=== PATIENT | male | born 1990 | race Asian ===

== ENCOUNTER 2025-05-22 13:25 | Inpatient (IN) | payer OTHER ==
[~2025-05-22] VITALS: Ht 177.8 cm; Wt 80.0 kg
[2025-05-22] MEDS ORDERED: OLAN5TAB52 PO (14:24)
[2025-05-22] MEDS ORDERED: FLUO-418 PO (14:24)
[2025-05-22] MEDS ORDERED: HYDR-4808 PO (14:24)
[2025-05-22 15:55] LABS: PLATELET COUNT (AUTO) 150 K/uL (150-450); RED BLOOD CELL COUNT(AUTO) 5.71 MIL/uL (4.50-5.90); RED CELL DISTRIBUTION WIDTH 13.6 % (11.5-14.5); WHITE BLOOD COUNT (AUTO) 6.9 K/uL (4.5-11.0)
[2025-05-22 15:59] LABS: CALCIUM, TOTAL 9.1 mg/dL (8.8-10.5); CREATININE 1.28 mg/dL (0.60-1.30); GLOMERULAR FILTR. RATE CALC > 60 mL/min (>60); GLUCOSE,RANDOM 78 mg/dL (70-110); SODIUM SERUM 144 mmol/L (136-145); UREA NITROGEN, BLOOD 20 mg/dL (7-18)
[2025-05-22 16:03] LABS: COVID AG,FIA SOURCE NPH
[2025-05-22 16:22] LABS: SARS-COV2 (COVID) ANTIGEN,FIA Negative (Negative)
[2025-05-22] MEDS ORDERED: ONDANSETRON HCL 4 MG/2 ML VIAL IVP PRN (17:45)
[2025-05-22] MEDS ORDERED: ACETAMINOPHEN 325 MG TABLET PO PRN (17:45)
[2025-05-22] MEDS: RINGERS SOLUTION,LACTATED 1,000 ML IV ONE (18:30)
[2025-05-22 20:00] VITALS: BP 127/79; PULSE 64; RESP 18; TEMP 97.9; O2SAT 97
[2025-05-22] MEDS: DOCUSATE SODIUM 100 MG CAPSULE PO SCH (20:24)
[2025-05-22 20:25] LABS: APPEARANCE,URINE CLEAR (CLEAR); GLUCOSE, URINE (UA) NEGATIVE (NEGATIVE); LEUKOCYTE ESTERASE ,URINE NEGATIVE (NEGATIVE); NITRATE,URINE NEGATIVE (NEGATIVE); OCCULT BLOOD,URINE NEGATIVE (NEGATIVE); PH,URINE DRUG SCREEN 5.5 (5.0-8.0); SPECIFIC GRAVITIY, URINE 1.033 (1.003-1.030)
[2025-05-22 21:58] LABS: ALCOHOL, URINE DRUG SCREEN NEGATIVE (NEGATIVE); AMPHET/METH SCREEN,URINE NEGATIVE (NEGATIVE); BARBITURATE SCREEN, URINE NEGATIVE (NEGATIVE); CANNABINOID SCREEN,URINE NEGATIVE (NEGATIVE); COCAINE SCREEN,URINE NEGATIVE (NEGATIVE); METHADONE SCREEN, URINE NEGATIVE (NEGATIVE)
[2025-05-23] MEDS: HEPARIN SODIUM,PORCINE 5,000 UNITS/ML VIAL SQ SCH
[2025-05-23 04:00] VITALS: BP 118/76; PULSE 60; RESP 18; TEMP 98; O2SAT 96
[2025-05-23 07:24] VITALS: BP 109/68; PULSE 67; RESP 18; TEMP 97.5; O2SAT 98
[2025-05-23 07:57] LABS: PLATELET COUNT (AUTO) 154 K/uL (150-450); RED BLOOD CELL COUNT(AUTO) 5.41 MIL/uL (4.50-5.90); RED CELL DISTRIBUTION WIDTH 13.5 % (11.5-14.5); WHITE BLOOD COUNT (AUTO) 5.0 K/uL (4.5-11.0)
[2025-05-23 08:11] LABS: CALCIUM, TOTAL 8.5 mg/dL (8.8-10.5); CREATININE 1.07 mg/dL (0.60-1.30); GLOMERULAR FILTR. RATE CALC > 60 mL/min (>60); GLUCOSE,RANDOM 73 mg/dL (70-110); SODIUM SERUM 142 mmol/L (136-145); UREA NITROGEN, BLOOD 23 mg/dL (7-18)
[2025-05-23] MEDS: ESCITALOPRAM OXALATE 10 MG TABLET PO SCH (17:11)
[2025-05-23 19:55] VITALS: BP 117/82; PULSE 57; RESP 18; TEMP 98.6; O2SAT 96
[2025-05-24 04:13] VITALS: BP 138/88; PULSE 76; RESP 18; TEMP 97.7; O2SAT 97
[2025-05-24 08:00] VITALS: BP 127/79; PULSE 57; RESP 20; TEMP 97.9; O2SAT 97
[2025-05-24] MEDS: 1: MAGNESIUM SULFATE 2 GM, MVI, ADULT NO.1 WITH VIT K 10 ML, THIAMINE 100 MG, FOLIC ACID IV SCH (14:37)
[2025-05-24 20:14] VITALS: BP 130/87; PULSE 60; RESP 18; TEMP 98.6; O2SAT 95
[2025-05-25 04:42] VITALS: BP 117/84; PULSE 61; RESP 18; TEMP 97.5; O2SAT 98
[2025-05-25 08:42] VITALS: BP 133/88; PULSE 60; RESP 18; TEMP 98.1; O2SAT 98
[2025-05-25 15:36] VITALS: BP 129/85; PULSE 76; RESP 18; TEMP 97.8; O2SAT 97
[2025-05-25 20:00] VITALS: BP 133/93; PULSE 62; RESP 18; TEMP 97.9; O2SAT 95
[2025-05-26 04:00] VITALS: BP 115/74; PULSE 52; RESP 18; TEMP 98.2; O2SAT 98
[2025-05-26 08:38] VITALS: BP 111/63; PULSE 66; RESP 18; TEMP 97.7; O2SAT 99
[2025-05-26 12:24] LABS: CALCIUM, TOTAL 8.4 mg/dL (8.8-10.5); CREATININE 0.94 mg/dL (0.60-1.30); GLOMERULAR FILTR. RATE CALC > 60 mL/min (>60); GLUCOSE,RANDOM 68 mg/dL (70-110); SODIUM SERUM 145 mmol/L (136-145); UREA NITROGEN, BLOOD 17 mg/dL (7-18)
[2025-05-26] MEDS ORDERED: DEXTROSE 50%-WATER 25 GM/50 ML SYRINGE IVP PRN (15:30)
[2025-05-26] MEDS: RINGERS SOLUTION,LACTATED 500 ML IV ONE (16:32)
[2025-05-26 18:05] LABS: GLUCOMETER DEV NAME(LOC) 6N.2C; GLUCOSE,POINT OF CARE 76 MG/DL (70-110)
[2025-05-26] MEDS: DEXTROSE 5%-LACTATED RINGERS 1,000 ML IV SCH (18:16)
[2025-05-26 20:07] VITALS: BP 116/76; PULSE 57; RESP 18; TEMP 98.1; O2SAT 96
[2025-05-27 04:58] VITALS: BP 102/76; PULSE 54; RESP 18; TEMP 97.7; O2SAT 94
[2025-05-27 07:28] LABS: CALCIUM, TOTAL 8.4 mg/dL (8.8-10.5); CREATININE 0.91 mg/dL (0.60-1.30); GLOMERULAR FILTR. RATE CALC > 60 mL/min (>60); GLUCOSE,RANDOM 97 mg/dL (70-110); SODIUM SERUM 143 mmol/L (136-145); UREA NITROGEN, BLOOD 11 mg/dL (7-18)
[2025-05-27 08:00] VITALS: BP 118/79; PULSE 57; RESP 16; TEMP 98.1; O2SAT 97
[2025-05-27] MEDS: MAGNESIUM SULFATE 2 GM/WATER 50 ML IV ONE (12:33)
[2025-05-27 16:00] VITALS: BP 130/85; PULSE 61; RESP 16; TEMP 98.1; O2SAT 98
[2025-05-27 20:04] VITALS: BP 132/88; PULSE 52; RESP 17; TEMP 98.2; O2SAT 97
[2025-05-28 04:19] VITALS: BP 109/77; PULSE 69; RESP 17; TEMP 98.1; O2SAT 95
[2025-05-28 07:34] VITALS: BP 118/72; PULSE 53; RESP 18; TEMP 97.3; O2SAT 97
[2025-05-28] MEDS: MAGNESIUM OXIDE 400 MG TABLET PO ONE (14:20)
[2025-05-28] MEDS ORDERED: ESCI-8 PO (15:07)
[2025-05-28] MEDS ORDERED: QUET100T PO (15:09)
== END 2025-05-28 19:40 | DRG 914 ==
LOC: EDBD → EMS 13:27 → EDH 16:47 → 6N 18:48
PROVIDERS: ADMIT Internal Medicine; ATTEND Internal Medicine
PROC: GZ56ZZZ Individual Psychotherapy, Supportive (ICD-10-PCS; 2025-05-23)
PROC: GZ52ZZZ Individual Psychotherapy, Cognitive (ICD-10-PCS; principal; 2025-05-26)
DX: S51.821A Laceration with foreign body of right forearm, initial encounter (principal); F32.3 Major depressive disorder, single episode, severe with psychotic features; I10 Essential (primary) hypertension; S51.822A Laceration with foreign body of left forearm, initial encounter; R79.89 Other specified abnormal findings of blood chemistry; Z20.822 Contact with and (suspected) exposure to COVID-19; Z53.20 Procedure and treatment not carried out because of patient's decision for unspecified reasons; E83.42 Hypomagnesemia; X78.8XXA Intentional self-harm by other sharp object, initial encounter; Y93.89 Activity, other specified; Y92.89 Other specified places as the place of occurrence of the external cause; Y99.8 Other external cause status; Z79.899 Other long term (current) drug therapy
CPT/HCPCS: 80048; 80307; 81003; 82962; 83735; 85025; 96360; 99285; G0480; J1644; J3411; J3475; J3490; J7030; J7120; 36415-L1; 36415-TC

== ENCOUNTER 2025-05-29 16:46 | Inpatient (IN) | payer OTHER ==
[~2025-05-29] VITALS: Ht 185.4 cm; Wt 81.0 kg
[~2025-05-29 16:46] MED LIST: ESCI-8 PO; QUET100T PO
[2025-05-29 17:26] LABS: PLATELET COUNT (AUTO) 146 K/uL (150-450); RED BLOOD CELL COUNT(AUTO) 5.74 MIL/uL (4.50-5.90); RED CELL DISTRIBUTION WIDTH 13.3 % (11.5-14.5); WHITE BLOOD COUNT (AUTO) 4.1 K/uL (4.5-11.0)
[2025-05-29 17:31] LABS: CALCIUM, TOTAL 9.1 mg/dL (8.8-10.5); CREATININE 1.12 mg/dL (0.60-1.30); GLOMERULAR FILTR. RATE CALC > 60 mL/min (>60); GLUCOSE,RANDOM 82 mg/dL (70-110); SODIUM SERUM 143 mmol/L (136-145); UREA NITROGEN, BLOOD 13 mg/dL (7-18)
[2025-05-29 21:23] VITALS: BP 134/93; PULSE 79; RESP 18; TEMP 97.9; O2SAT 97
[2025-05-29] MEDS ORDERED: MAGNESIUM HYDROXIDE SUSPENSION 30 ML UDCUP PO PRN (21:30)
[2025-05-29] MEDS ORDERED: ZOLPIDEM TARTRATE 5 MG TABLET PO PRN (21:30)
[2025-05-29] MEDS ORDERED: IPRATROPIUM BROMIDE 0.5 MG/2.5 ML NEB SOLUTION NEB PRN (21:30)
[2025-05-29] MEDS ORDERED: ONDANSETRON HCL 4 MG/2 ML VIAL IVP PRN (21:30)
[2025-05-29] MEDS: DEXTROSE 5%-0.45% SODIUM CHL 1,000 ML IV SCH (21:30)
[2025-05-29] MEDS ORDERED: ALBUTEROL SULFATE 2.5 MG/0.5 ML NEB SOLUTION NEB PRN (21:30)
[2025-05-29] MEDS ORDERED: ACETAMINOPHEN 325 MG TABLET PO PRN (21:30)
[2025-05-29] MEDS ORDERED: BISACODYL 10 MG RECTAL RECTAL SUPPOSITORY PR PRN (21:30)
[2025-05-29 22:02] LABS: ASPARTATE AMINOTRANSFERASE 41.0 U/L (15-37); TOTAL PROTEIN, SERUM 7.5 g/dL (6.4-8.2)
[2025-05-29] MEDS: HEPARIN SODIUM,PORCINE 5,000 UNITS/ML VIAL SQ SCH (23:28)
[2025-05-30 04:31] VITALS: BP 114/79; PULSE 58; RESP 17; TEMP 97.7; O2SAT 96
[2025-05-30 07:15] VITALS: BP 107/71; PULSE 67; RESP 18; TEMP 97.9; O2SAT 100
[2025-05-30] MEDS: PANTOPRAZOLE SODIUM 40 MG DR TABLET PO SCH (08:28)
[2025-05-30 20:00] VITALS: BP 122/87; PULSE 63; RESP 18; TEMP 98.2; O2SAT 99
[2025-05-31 04:00] VITALS: BP 109/60; PULSE 54; RESP 18; TEMP 98; O2SAT 99
[2025-05-31 08:36] VITALS: BP 125/89; PULSE 69; RESP 18; TEMP 97.8; O2SAT 98
[2025-05-31 16:09] VITALS: BP 124/82; PULSE 60; RESP 16; TEMP 97.9; O2SAT 100
[2025-05-31 20:13] VITALS: BP 118/84; PULSE 61; RESP 18; TEMP 98.2; O2SAT 94
[2025-06-01 04:21] VITALS: BP 95/66; PULSE 60; RESP 18; TEMP 97.7; O2SAT 97
[2025-06-01 07:17] VITALS: BP_SYST 108; BP_SYST 112; BP_DIAS 65; BP_DIAS 74; PULSE 55; PULSE 70; RESP 18; TEMP 98.1; O2SAT 100
[2025-06-01 15:38] VITALS: BP 120/82; PULSE 68; RESP 16; TEMP 98.1; O2SAT 99
[2025-06-01 19:50] VITALS: BP 116/82; PULSE 61; RESP 17; TEMP 98.1; O2SAT 97
[2025-06-02 04:20] VITALS: BP 107/78; PULSE 59; RESP 17; TEMP 98; O2SAT 98
[2025-06-02 20:09] VITALS: BP 111/75; PULSE 56; RESP 18; TEMP 97.7; O2SAT 95
[2025-06-03 04:48] VITALS: BP 105/76; PULSE 57; RESP 17; TEMP 97.5; O2SAT 96
[2025-06-03 08:14] VITALS: BP 100/72; PULSE 64; RESP 18; TEMP 97.5; O2SAT 97
[2025-06-03 16:20] LABS: ASPARTATE AMINOTRANSFERASE 14 U/L (15-37); CALCIUM, TOTAL 8.8 mg/dL (8.8-10.5); CREATININE 1.26 mg/dL (0.60-1.30); GLOMERULAR FILTR. RATE CALC > 60 mL/min (>60); GLUCOSE,RANDOM 166 mg/dL (70-110); PHOSPHORUS 3.4 mg/dL (2.5-4.9); SODIUM SERUM 138 mmol/L (136-145); TOTAL PROTEIN, SERUM 7.0 g/dL (6.4-8.2); UREA NITROGEN, BLOOD 29 mg/dL (7-18)
[2025-06-03 19:56] VITALS: BP 127/87; PULSE 76; RESP 18; TEMP 97.9; O2SAT 97
[2025-06-04 04:53] VITALS: BP 103/69; PULSE 62; RESP 18; TEMP 97.5; O2SAT 97
[2025-06-04] MEDS: ESCITALOPRAM OXALATE 10 MG TABLET PO SCH (08:18)
[2025-06-04 08:23] VITALS: BP 102/70; PULSE 60; RESP 17; TEMP 97.7; O2SAT 100
[2025-06-04] MEDS ORDERED: ESCITALOPRAM OXALATE 10 MG TABLET PO SCH (09:00)
[2025-06-04 20:00] VITALS: BP 119/91; PULSE 71; RESP 20; TEMP 97.9; O2SAT 98
[2025-06-05 05:30] VITALS: BP 109/54; PULSE 59; RESP 18; TEMP 97.9; O2SAT 96
[2025-06-05 07:46] VITALS: BP 91/61; PULSE 56; RESP 18; TEMP 97.7; O2SAT 97
[2025-06-05 19:33] VITALS: BP 110/66; PULSE 68; RESP 18; TEMP 98.4; O2SAT 95
[2025-06-06 05:17] VITALS: BP 92/61; PULSE 63; RESP 18; TEMP 97.5; O2SAT 98
[2025-06-06 08:04] VITALS: BP 100/62; PULSE 61; RESP 18; TEMP 97.7; O2SAT 98
[2025-06-06 19:28] VITALS: BP_SYST 109; BP_SYST 118; BP_DIAS 72; BP_DIAS 82; PULSE 73; RESP 20; TEMP 97.3; TEMP 98.1; O2SAT 98
[2025-06-07 04:33] VITALS: BP 107/74; PULSE 60; RESP 18; TEMP 97.7; O2SAT 97
[2025-06-07 08:14] VITALS: BP 110/69; PULSE 59; RESP 18; TEMP 97.3; O2SAT 97
[2025-06-07 19:31] VITALS: BP 118/74; PULSE 74; RESP 18; TEMP 97.8; O2SAT 96
[2025-06-08 04:00] VITALS: BP 97/58; PULSE 57; RESP 18; TEMP 97.7; O2SAT 98
[2025-06-08 08:00] VITALS: BP 98/67; PULSE 58; RESP 19; TEMP 97.7; O2SAT 97
[2025-06-08] MEDS: ESCITALOPRAM OXALATE 10 MG TABLET PO SCH (08:42)
[2025-06-08 19:26] VITALS: BP 118/75; PULSE 75; RESP 18; TEMP 98.1; O2SAT 96
[2025-06-09 04:59] VITALS: BP 98/60; PULSE 61; RESP 18; TEMP 97.9; O2SAT 96
[2025-06-09 08:08] VITALS: BP 96/62; PULSE 62; RESP 18; TEMP 97.9; O2SAT 98
[2025-06-09 20:08] VITALS: BP 123/80; PULSE 72; RESP 18; TEMP 98.2; O2SAT 98
[2025-06-10 04:30] VITALS: BP 99/68; PULSE 59; RESP 18; TEMP 97.9; O2SAT 97
[2025-06-10 07:59] VITALS: BP 103/70; PULSE 55; RESP 18; TEMP 97.9; O2SAT 99
[2025-06-10 10:02] LABS: PLATELET COUNT (AUTO) 158 K/uL (150-450); RED BLOOD CELL COUNT(AUTO) 4.95 MIL/uL (4.50-5.90); RED CELL DISTRIBUTION WIDTH 13.2 % (11.5-14.5); WHITE BLOOD COUNT (AUTO) 4.4 K/uL (4.5-11.0)
[2025-06-10 10:06] LABS: CALCIUM, TOTAL 8.7 mg/dL (8.8-10.5); CREATININE 1.03 mg/dL (0.60-1.30); GLOMERULAR FILTR. RATE CALC > 60 mL/min (>60); GLUCOSE,RANDOM 112 mg/dL (70-110); SODIUM SERUM 140 mmol/L (136-145); UREA NITROGEN, BLOOD 14 mg/dL (7-18)
[2025-06-10 10:58] LABS: PLATELET MORPHOLOGY COMMENT GIANT PLTS PRESENT
[2025-06-10 19:24] VITALS: BP 100/63; PULSE 69; RESP 17; TEMP 98.2; O2SAT 96
[2025-06-11 04:17] VITALS: BP 95/64; PULSE 63; RESP 18; TEMP 97.9; O2SAT 97
[2025-06-11] MEDS: ESCITALOPRAM OXALATE 20 MG TABLET PO SCH (08:34)
[2025-06-11 08:40] VITALS: BP 99/69; PULSE 58; RESP 19; TEMP 98.1; O2SAT 98
[2025-06-11 20:03] VITALS: BP 116/72; PULSE 71; RESP 18; TEMP 98.8; O2SAT 99
[2025-06-12 04:42] VITALS: BP 101/68; PULSE 60; RESP 18; TEMP 97.7; O2SAT 97
[2025-06-12 08:14] VITALS: BP 104/65; PULSE 54; RESP 18; TEMP 97.9; O2SAT 98
[2025-06-12 20:17] VITALS: BP 112/68; PULSE 67; RESP 17; TEMP 98.2; O2SAT 99
[2025-06-13 04:15] VITALS: BP 100/63; PULSE 59; RESP 17; TEMP 97.9; O2SAT 98
[2025-06-13 08:00] VITALS: BP 101/60; PULSE 60; RESP 19; TEMP 97.9; O2SAT 98
[2025-06-13 20:00] VITALS: BP 115/82; PULSE 60; RESP 18; TEMP 97.7; O2SAT 99
[2025-06-14 04:00] VITALS: BP 110/62; PULSE 58; RESP 18; TEMP 97.7; O2SAT 99
[2025-06-14 07:40] VITALS: BP 96/64; PULSE 66; RESP 18; TEMP 97.9; O2SAT 100
[2025-06-14 19:39] VITALS: BP 108/61; PULSE 72; RESP 18; TEMP 98.2; O2SAT 97
[2025-06-15 04:28] VITALS: BP 105/62; PULSE 65; RESP 18; TEMP 97.9; O2SAT 98
[2025-06-15 08:05] VITALS: BP 100/57; PULSE 56; RESP 20; TEMP 98.1; O2SAT 100
[2025-06-15 20:26] VITALS: BP 117/76; PULSE 62; RESP 18; TEMP 98.4; O2SAT 98
[2025-06-16 05:18] VITALS: BP 96/68; PULSE 57; RESP 18; TEMP 97.5; O2SAT 95
[2025-06-16 08:02] VITALS: BP 94/62; PULSE 62; RESP 18; TEMP 97.7; O2SAT 98
[2025-06-16] MEDS ORDERED: ESCI20TA87 PO (13:29)
[2025-06-16] MEDS ORDERED: QUET200T PO (13:30)
[2025-06-16 19:17] VITALS: BP 122/79; PULSE 73; RESP 18; TEMP 98.6; O2SAT 96
[2025-06-16] MEDS: VALPROIC ACID 250 MG/5 ML SOLUTION UDCUP PO SCH (19:59)
[2025-06-17 04:43] VITALS: BP 98/69; PULSE 65; RESP 18; TEMP 98.2; O2SAT 96
[2025-06-17 08:00] VITALS: BP 100/57; PULSE 60; RESP 19; TEMP 97.9; O2SAT 98
[2025-06-17 19:56] VITALS: BP 116/76; PULSE 70; RESP 18; TEMP 98.2; O2SAT 97
[2025-06-18 04:16] VITALS: BP 118/58; PULSE 55; RESP 17; TEMP 98.1; O2SAT 96
[2025-06-18 08:12] VITALS: BP 107/63; PULSE 59; RESP 18; TEMP 98; O2SAT 98
[2025-06-18 20:00] VITALS: BP 114/78; PULSE 51; RESP 18; TEMP 98.2; O2SAT 97
[2025-06-18 23:47] VITALS: PULSE 56; O2SAT 96
[2025-06-19 04:00] VITALS: BP 109/60; PULSE 51; RESP 18; TEMP 97.5; O2SAT 97
[2025-06-19 07:23] VITALS: BP 97/65; PULSE 55; RESP 18; TEMP 97.7; O2SAT 98
[2025-06-19 20:13] VITALS: BP 110/76; PULSE 62; RESP 20; TEMP 98.6; O2SAT 97
[2025-06-20 04:25] VITALS: BP 106/59; PULSE 63; RESP 20; TEMP 97.7; O2SAT 98
[2025-06-20 08:30] VITALS: BP 99/69; PULSE 62; RESP 19; TEMP 98.1; O2SAT 98
[2025-06-20 19:21] VITALS: BP 107/66; PULSE 61; RESP 18; TEMP 97.5; O2SAT 98
[2025-06-21 04:39] VITALS: BP 103/64; PULSE 60; RESP 18; TEMP 97.7; O2SAT 97
[2025-06-21 21:05] VITALS: BP 106/76; PULSE 61; RESP 18; TEMP 98.2; O2SAT 97
[2025-06-22 04:50] VITALS: BP 97/68; PULSE 58; RESP 18; TEMP 97.7; O2SAT 100
[2025-06-22 07:43] VITALS: BP 102/64; PULSE 57; RESP 18; TEMP 98.2; O2SAT 98
== END 2025-06-22 18:00 | DRG 885 ==
LOC: EMS 16:46 → EDH 17:43 → 6N 20:50
PROVIDERS: ADMIT Hospitalist; ATTEND Hospitalist
DX: F25.1 Schizoaffective disorder, depressive type (principal); D69.6 Thrombocytopenia, unspecified; F32.9 Major depressive disorder, single episode, unspecified; R45.851 Suicidal ideations; Z53.20 Procedure and treatment not carried out because of patient's decision for unspecified reasons; F41.9 Anxiety disorder, unspecified; Z74.01 Bed confinement status; Z79.899 Other long term (current) drug therapy
CPT/HCPCS: 80048; 80053; 80076; 80164; 83735; 84100; 85025; 87081; 99285; J1644